=== PATIENT | male | born 1940 | race Caucasian/White ===

== ENCOUNTER 2017-03-10 19:14 | Inpatient (IN) | payer OTHER, MEDICARE ==
--- NOTE | ~2017-03-10 | DS ---
Unit #: [id number] #: [id number] Patient: VIRAL COHN JR [id number] [address] [place], [place] [address] [id number] I MR#: [id number] NAME: VIRAL COHN JR ROOM: 568 Age: 76 Sex: M Admission Date: 03/10/2017 : 1940 Discharge Date: 03/13/2017 Attending Physician: Deo Pacheco M.D. Primary Care Physician: No Primary Care Physician DISCHARGE SUMMARY DISCHARGE DIAGNOSES 1. Acute on chronic systolic congestive heart failure with a left ventricular ejection fraction of 15%. 2. Valvular heart disease with history of severe mitral regurgitation and moderate tricuspid regurgitation. 3. Coronary artery disease with history of myocardial infarction status post percutaneous coronary intervention and drug-eluting stent in the right coronary artery. Mid LAD 70%. Posterior marginal 80%. September 2013. 4. Sick sinus syndrome with history of permanent pacemaker. Needs consideration for upgrade of biventricular AICD. 5. History of atrial fibrillation, now ventricular paced. 6. Hypertension. 7. Hyperlipidemia. 8. Diabetes mellitus, insulin dependent. 9. Recent hypoglycemia, stable. 10. Chronic obstructive pulmonary disease. 11. Obstructive sleep apnea. 12. Acute kidney injury on chronic kidney disease. 13. Mild thrombocytopenia. 14. Peripheral arterial disease with history of abdominal aortic aneurysm repair. DISCHARGE MEDICATIONS 1. Metoprolol succinate 25 mg p.o. b.i.d. 2. Furosemide 40 mg p.o. b.i.d. 3. Crestor 20 mg p.o. daily. 4. Lisinopril 10 mg p.o. q.h.s. 5. Hytrin 10 mg p.o. daily. 6. NovoLog mix 70/30 30 units subcu b.i.d. before meals. 7. Aspirin 81 mg p.o. daily. 8. Plavix 75 mg p.o. daily. 9. Spironolactone 25 mg p.o. daily. 10. Protonix 40 mg p.o. daily. 11. Potassium chloride 20 mEq p.o. b.i.d. 12. Nitroglycerin 0.4 mg sublingual q.5 minutes x3 p.r.n. for chest pain. HOSPITAL COURSE This is a 76-year-old white male known to our group with a past medical history of chronic systolic congestive heart failure, sick sinus syndrome status post permanent pacemaker, hypertension, hyperlipidemia, diabetes mellitus and coronary artery disease status post PCI and stent in the right coronary artery in 2012. The patient is also known to have peripheral artery disease and underwent previous abdominal aortic aneurysm Unit #: [id number] #: [id number] Patient: VIRAL COHN JR repair. He presented to the office on 03/10/2017 with complaints of shortness of breath with PND and orthopnea. He also had a dry hacking cough. There were no complaints of chest pain, palpitations, dizziness or syncope. He did have some swelling in his right ankle over the last couple of weeks. EKG revealed ventricular paced rhythm. Initial exam revealed diminished breath sounds in both lungs with fine rales and rhonchi. EKG was obtained and revealed a decreased ejection fraction of 10 to 15%. There was severe mitral regurgitation caused by an eccentric jet, moderate tricuspid regurgitation and a right ventricular systolic pressure of 47 mmHg with trace aortic regurgitation. Previous ejection fraction was documented at 35% per cardiac catheterization 2012. He was admitted to the hospital and started on IV Lasix and a short course of IV dobutamine. He was started on afterload reducing agents. With severe left ventricular systolic dysfunction, he was not felt to be a good candidate for surgical repair of the mitral or tricuspid valve at this stage. Dr. Garcia was consulted for medical management. During hospitalization, the patient did have some hypoglycemia and his 70/30 mix was decreased and his glucose levels stabilized. Dobutamine drip was discontinued and he was restarted on an oral beta bettye. He was briefly started on Entresto once his volume status improved but his creatinine ultimately increased from 1.4 to 2.2. He denies any shortness of breath or lower extremity edema. His volume status has stabilized. However, due to his elevated creatinine, Entresto has been stopped. He was then placed back on his HOMER inhibitor per home dosing. He has been started on a low dose of Spironolactone and his Lasix has been adjusted. He has been recommended to follow up in the office with Dr. Garcia in one week for a glucose check and appointment. He has also been instructed to follow up on 03/16/2017 for a BMP to evaluate renal function. The patient has an EF of only 15%, which is thought to be from valvular disease. Again, he is not a candidate for current valve replacement. He should be considered for biventricular AICD which can be arranged as an outpatient. CHF education has been completed and the patient has been encouraged to follow fluid restriction and low sodium. SPEECH [facility] DIRECTOR Dr. Garcia. DIAGNOSTIC STUDIES LABORATORY: White cell count 6.4, hemoglobin 12.9, hematocrit 38.6, platelets 106. Sodium 140, potassium 3.9, chloride 99, CO2 31, BUN 32, creatinine 2.2, glucose 173, magnesium 2.2. BNP 1,216, 678 and 338. Hemoglobin A1C is 7. TSH 5.36. IMAGING: Chest x-ray on 03/10/2017 reveals background parenchymal changes suggesting mild emphysema. Trace amount of pleural fluid or pleural thickening but no sizeable effusions or focal airspace disease. CARDIOVASCULAR: EKG and telemetry reveal a V-paced rhythm. PHYSICAL EXAMINATION GENERAL APPEARANCE: This is a 76-year-old white male in no acute distress. VITAL SIGNS: Temperature 96.1. Pulse 72. Blood pressure 96/55 with previous blood pressure 118/62. SKIN: Warm and dry. NECK: Supple. No jugular vein distension. No hepatojugular reflux. Normal carotid upstrokes. No carotid bruits auscultated. HEART: S1, S2. Regular rate and rhythm. No murmurs, rubs or gallops. Unit #: [id number] #: [id number] Patient: VIRAL COHN JR LUNGS: Bilateral breath sounds have good air entry throughout all lung smith. Respirations even and unlabored. No rales, rhonchi or wheezes. ABDOMEN: Soft, nontender, nondistended. Positive bowel sounds auscultated x4 quadrants. No ascites noted. EXTREMITIES: Bilateral extremities have pretibial pitting edema. DP and PT pulses 2+. Capillary refill less than three seconds. DISCHARGE INSTRUCTIONS 1. The patient will be discharged home today. 2. Follow up with Dr. Garcia in one week. 3. Follow up with Dr. Pacheco in six weeks. Office will call to arrange appointment. 4. CHF education. 5. Diet: No concentrated sweets, 2 g sodium with 1800 mL daily fluid restriction. 6. BMP on 03/16/2017 due to renal dysfunction. 7. Consider pacemaker upgrade to biventricular AICD. 8. Prescriptions provided for nitroglycerin, potassium chloride, metoprolol succinate, Lasix and spironolactone. 9. The patient had documented atrial fibrillation in a dictation in 2012. Telemetry currently reveals a regular rhythm with ventricular paced beats. Need to discuss long-term anticoagulation as an outpatient due to the fact that the patient has valvular heart disease and a low ejection fraction, he will be prone for recurrent atrial arrhythmias. Dictated by... Odalys Sabillon APRN for Hernandez Pineda/jorje TD: 03/15/2017 07:40 JOB #: [id number] DISCHARGE SUMMARY Page 1 of 1 X X DISCHARGE SUMMARY
--- NOTE | ~2017-03-10 | CO ---
Unit #: [id number] #: [id number] Patient: VIRAL COHN JR [id number] [address] [place], [place] [address] [id number] I MR#: [id number] NAME: VIRAL COHN JR ROOM: 568 Age: 76 Sex: M Admission Date: 03/10/2017 : 1940 Attending Physician: Deo Pacheco M.D. CONSULTATION REPORT CONSULTING AND ADMITTING PHYSICIAN Deo Pacheco M.D. REASON FOR HOSPITALIZATION The patient is a 76-year-old white male with a history of obesity, coronary artery disease, type 2 diabetes mellitus, hypertension, CHF, ejection fraction of 15%, severe mitral regurgitation, COPD, permanent pacemaker, chronic kidney disease stage 3, obstructive sleep apnea syndrome for which he is noncompliant with CPAP, peripheral arterial disease, status post abdominal aortic aneurysm repair, thrombocytopenia, apparently saw Dr. Pacheco in the office for worsening shortness of air. He has had no chest pain. He had some increased peripheral edema. He has fairly chronic PND and orthopnea, but again he has sleep apnea and does wear a CPAP mask. He was directly admitted from the office for IV diuresis and dobutamine therapy. ALLERGIES He has stated allergies to Levaquin and Talwin. MEDICATIONS Prior to admission; metoprolol 50 mg p.o. b.i.d.; Prinivil 10 mg p.o. q.h.s.; Lasix 80 mg p.o. b.i.d.; Hytrin 10 mg q.h.s.; Plavix 75 mg daily; metolazone 2.5 mg daily; Crestor 20 mg daily; K-Dur 20 mEq t.i.d.; Protonix 40 mg daily; NovoLog 70/30, 55 units a.m. and 45 units p.m. PAST MEDICAL HISTORY Acute myocardial infarction in 09/2013; at which time, he underwent PTCA and stent of the right coronary artery. He has a permanent pacemaker for high-degree AV block; history of thrombocytopenia; type 2 diabetes mellitus; chronic kidney disease, stage 3; peripheral arterial disease, status post abdominal aortic aneurysm repair; he has had a prior cholecystectomy; history of hypertension; hyperlipidemia; obstructive sleep apnea syndrome; COPD. PAST SURGICAL HISTORY Cholecystectomy, permanent pacemaker, abdominal aortic aneurysm repair, cardiac stent. SOCIAL HISTORY Prior smoker, nondrinker. No street drug use. , retired. PHYSICAL EXAMINATION GENERAL: He is awake, alert, oriented x3, in no acute distress. VITAL SIGNS: O2 saturations 97% on room air, he is afebrile, pulse 75, Unit #: [id number] #: [id number] Patient: VIRAL COHN JR respirations 18, blood pressure 146/63. HEENT: Unremarkable. NECK: Supple without JVD, bruits, adenopathy or thyromegaly. CHEST: Diffusely decreased breath sounds, but no audible rales or wheezes. HEART: Has a regular rate and rhythm without any murmurs, rubs, or gallops. ABDOMEN: Soft, nondistended, nontender with positive bowel sounds. No hepatosplenomegaly. EXTREMITIES: Show no clubbing, cyanosis, or edema. /RECTAL: Deferred. NEUROLOGIC: Grossly intact. DIAGNOSTIC STUDIES LABORATORY RESULTS: CBC is normal except for a hemoglobin of 12.9 with normal indices, platelets are 104,000. BNP is 1216. CMP is normal except for a GFR of 48.1 and a potassium of 2.8. Free T4 and TSH are within normal limits. Magnesium is 1.5. Blood sugar checked last p.m. was 87. IMAGING STUDIES: Chest x-ray done, no report. No EKG in the chart. His rhythm strip showed a paced rhythm. IMPRESSION 1. Acute on chronic congestive heart failure. 2. Severe systolic congestive heart failure with an ejection fraction of 15%. 3. Severe mitral regurgitation. 4. Hypokalemia. 5. Hypomagnesemia. 6. Thrombocytopenia. 7. Anemia. 8. Obstructive sleep apnea syndrome. 9. Chronic obstructive pulmonary disease. 10. Type 2 diabetes mellitus. 11. Hyperlipidemia. 12. Hypertension. 13. Coronary artery disease. 14. Peripheral arterial disease. 15. Permanent pacemaker. 16. Chronic kidney disease, stage 3. 17. Status post cholecystectomy. 18. Status post abdominal aortic aneurysm repair. PLAN As above, the patient has been placed on IV Lasix. His potassium and magnesium will be replaced per protocol. He was on IV Dobutrex and a monitored bed. SCDs are in place for DVT prophylaxis. He is on a fluid restriction with strict I's and O's. We will follow up on his renal function, blood sugars, and electrolytes. Thank you for the consultation. Dictated by... Ivan Garcia M.D. DOUG/ernie Unit #: [id number] #: [id number] Patient: VIRAL COHN JR TD: 03/12/2017 07:28 JOB #: [id number] CONSULTATION REPORT Page 1 of 1 X Ivan Garcia MD X CONSULTATION REPORT
--- NOTE | ~2017-03-10 | HP ---
Unit #: [id number] #: [id number] Patient: VIRAL RODGERS JR [id number] [address] [place], [place] [address] [id number] I MR#: [id number] NAME: VIRAL RODGERS ROOM: 568 Age: 76 Sex: M Admission Date: 03/10/2017 : 1940 Attending Physician: Deo Pacheco M.D. Primary Care Physician: No Primary Care Physician HISTORY AND PHYSICAL REASON FOR ADMISSION Congestive heart failure. HISTORY OF PRESENT ILLNESS Mr. Rodgers is a 76-year-old white male known to have coronary artery disease and left ventricular systolic failure, with a history of sick sinus node syndrome and permanent pacemaker implantation in the past. He came to the office for a routine physical examination, but complained of shortness of breath the night before admission to an extent that he had a sitter by the side of the bed to be able to catch his breath. He had been awakened from sleep about 2 in the morning and dozed off to sleep sitting up because every time he tried to lie back in bed he would smother. This was accompanied by dry hacking cough, but he denied any chest discomfort to suggest angina pectoris, palpitations, dizziness or lightheadedness. He had noticed swelling over his ankle over the last few weeks, but did not make the connection between shortness of breath and leg edema. The patient has been able to do most of his day-to-day activities around the house without any chest pain or shortness of breath, but walking up a flight of stairs or walking in a grocery store had made him extremely dyspneic and weak. He denies any syncope, near syncope, palpitations. There is no history of hemoptysis, diplopia, blurred vision, lightheadedness. PAST MEDICAL HISTORY 1. Positive for type 2 diabetes mellitus. 2. Chronic renal insufficiency. 3. Peripheral arterial disease. 4. Status post abdominal aortic aneurysm repair. 5. Hypertension. 6. Hyperlipidemia. 7. Permanent pacemaker implantation. 8. Thrombocytopenia. PAST CORONARY HISTORY 1. History of myocardial infarction in 09/2013, for which he underwent angioplasty with stent insertion on the right coronary artery. 2. Cardiac catheterization in 2012 also reviewed. Following left ventricular systolic dysfunction with ejection fraction of 35%. There was 70% mid LAD stenosis, 99% stenosis in the mid right coronary artery. A previously placed stent had shown a 50% intrastent stenosis and there was 80% stenosis in the second marginal branch of the circumflex. 3. An echocardiogram done in 2013 showed an ejection fraction of 35%, Unit #: [id number] #: [id number] Patient: VIRAL RODGERS JR moderate to severe mitral regurgitation, grade 2 diastolic dysfunction and severe global hypokinesis of the left ventricle with trace of aortic regurgitation and normal right ventricular systolic pressures. This was done at [facility]. SOCIAL HISTORY The patient is a nonsmoker and does not abuse alcohol. FAMILY HISTORY Positive for coronary artery disease. REVIEW OF SYSTEMS The patient denies any history of fever, chills, rigors, hematuria, weight loss, abdominal pain, constipation or diarrhea. PHYSICAL EXAMINATION GENERAL: Middle-aged male in no acute cardiorespiratory distress. VITALS: At the time of examination he had a heart rate of 68 beats per minute and regular. Blood pressure 120/60. HEENT: Jugular veins are distended to 4 cm at 30 degree head elevation, carotid upstrokes are normal without any bruits. There was 2+ leg edema up to the mid calf. CHEST: Diminished breath sounds in both lung smith, there are fine rales and rhonchi in both lung smith at the bases. HEART: Apical impulse is displaced outside the midclavicular line, first heart sound is normal, second heart sound is widely split. There is a grade 1-2/6 systolic murmur at the apex, no diastolic murmur could be appreciated. There was an S3 gallop. There was no pericardial frication rub. ABDOMEN: Mild obesity. There is no tenderness or mass. Scar of previous surgery is noted. Liver edge is not palpable. There is no ascites. RECTAL: Not done. NEUROLOGIC: MEDICAL CSR examination shows cranial nerves are normal. There is no motor or sensory deficit. DIAGNOSTIC STUDIES CARDIOVASCULAR: Electrocardiogram shows ventricular VVI pacemaker functioning normally. Echocardiogram shows severely reduced ejection fraction of 10%-15%. There is severe mitral regurgitation caused by an eccentric jet, moderate tricuspid regurgitation is noted with right ventricular systolic pressure of 47 mmHg and a trace of aortic regurgitation. ASSESSMENT 1. Acute on chronic systolic heart failure. 2. Permanent pacemaker functioning normally. 3. Severe mitral regurgitation. 4. Moderate tricuspid regurgitation. 5. Mild pulmonary artery hypertension. 6. Three vessel coronary artery disease, old inferior wall myocardial infarction. 7. Status post PCI with stent insertion right coronary artery 2013. 8. Type 2 diabetes mellitus. 9. Hypertensive heart disease. 10. Status post abdominal aortic aneurysm repair. PLAN Unit #: [id number] #: [id number] Patient: VIRAL RODGERS JR The patient will be admitted to the hospital, intravenous Lasix is being started with a short course of intravenous dobutamine. Afterload reducing agents will be started and if renal function is still normal, the dose of HOMER inhibitors would be increased. Prognosis remains guarded. I will discuss the problem with the patient and his family about possible evaluation for progression of coronary artery disease. With severe left ventricular systolic dysfunction, I do not think he is a candidate for surgical repair of the mitral valve or tricuspid valve at this stage. I will discuss the case with Dr. Ivan Garcia, his primary physician. Dictated by Hernandez Pineda/nirav TD: 03/11/2017 07:50 JOB #: [id number] HISTORY AND PHYSICAL Page 1 of 1 X Deo Pacheco MD X HISTORY AND PHYSICAL
--- NOTE | ~2017-03-10 | CR63 ---
[facility] A Service of [facility] RADIOLOGY TEXT RESULTS PATIENT: VIRAL COHN JR LOCATION: [facility] : 39 UNIT #: [id number] AGE: [address]: Deo Pacheco MD SEX: M ORDER DR: [id number] [facility] [address]. [place], [place] [address] [id number] I MR#: [id number] Acc #: [id number] NAME: VIRAL COHN : 1940 SEX: M STUDY DATE/TIME: 03/10/2017 23:02 UNIT: [facility] ROOM: [facility] STUDY DESCRIPTION: CR Chest 2 View Attending Physician: Deo Pacheco M.D. Ordering Physician: Deo Pacheco M.D. MEDICAL IMAGING REPORT This report is preliminary unless electronic signature is present EXAM 2-view chest HISTORY Cough, CHF onset today. COMPARISON 04/23/2016 FINDINGS 2 views of the chest demonstrates hyperinflation patchy hyperlucency suggesting mild emphysema. Slight blunting of both CP angles may represent a trace amount of pleural fluid or pleural thickening. No sizeable effusions. Stable cardiomegaly and diffuse aortic atherosclerotic changes. Dual lead pacemaker noted over the left chest with leads in expected position. Diffuse degenerative changes thoracic spine. IMPRESSION No definite acute abnormality. Background parenchymal changes suggest mild emphysema and there may be a trace amount of pleural fluid or pleural thickening but no sizeable effusions or focal airspace disease. Dictated by... Anthony Garcia M.D. THIS IS AN ELECTRONICALLY VERIFIED REPORT Anthony Garcia M.D. at 03/14/2017 7:23 AM ED/mark TD: 03/11/2017 03:13 JOB #: [id number] [facility] A Service of [facility] RADIOLOGY TEXT RESULTS PATIENT: VIRAL COHN JR LOCATION: [facility] : 39 UNIT #: [id number] AGE: [address]: Deo Pacheco MD SEX: M ORDER DR: MEDICAL IMAGING REPORT Page 1 of 1 COPY
[~2017-03-10 19:14] MED LIST: ASPIRIN PO; ASPIRIN81 MG PO; CECLOR PULVULE250 MG PO; CEFUROXIME250 MG PO; CLOPIDOGREL BIS75 MG PO; CLOPIDOGREL75 MG PO; COMBIVENT U/D3 M2 INH; COMBIVENT U/D3 ML INH; CRESTOR PO; EFFER-K 20 MEQ20 MEQ PO; FUROSEMIDE80 MG PO; GLUCOPHAGE XR500 MG PO; GLUCOTROL PO; GLUCOTROL10 MG PO; HCTZ PO; HYDRALAZINE HCL25 MG PO; HYTRIN PO; HYTRIN10 M1 PO; INSULIN; K-DUR20 ME1 PO; KCL PO; LASIX PO; LASIX80 MG PO; LIPITOR20 MG PO; LISINOPRIL PO; LOPRESSOR PO; METOLAZONE2.5 MG PO; METOPROLOL PO; METOPROLOL SUCC50 MG PO; METOPROLOL TART25 MG PO; NORVASC PO; NOVOLOG MI100 UNIT/1; NOVOLOG100 U/ML SUBQ; NOVOLOG7030 SUBQ; PANTOPRAZOLE SO40 MG PO; PLAVIX PO; PRINIVIL10 MG PO; PROTONIX PO; SYMBICORT INH; TERAZOSIN HCL10 MG PO; ZESTRIL40 MG PO; ZITHROMAX1 G/PKT PO
[2017-03-11 00:01] LABS: BASOPHIL% 0.6 % (0-2.5); EOSINOPHIL# 0.3 X10e3 (0-0.7); EOSINOPHIL% 3.9 % (0.0-7.0); HEMATOCRIT 38.4 % (38.0-50.0); HEMOGLOBIN 12.9 gm/dL (13.0-16.0); LYMPHOCYTE% 25.9 % (17.0-45.0); MEAN CELL VOLUME 87.8 FL (83-96); MEAN CORPUSCULAR HEMOGLOBIN 29.6 PG (28-34); MEAN CORPUSCULAR HGB CONC 33.7 g/dL (30-36); MEAN PLATELET VOLUME 8.9 FL (6.5-11.5); MONOCYTE# 0.7 X10e3 (0-1.0); MONOCYTE% 9.5 % (3.0-12.0); NEUTROPHIL# 4.5 X10e3 (1.5-7.1); NEUTROPHIL% 60.1 % (40-75); PLATELET COUNT 104 X10e3 (140-420); RED BLOOD COUNT 4.38 X10e (3.90-5.60); RED CELL DISTRIBUTION WIDTH 17.6 % (11.0-15.5); WHITE BLOOD COUNT 7.5 X10e3 (4.0-10.5)
[2017-03-11 00:03] LABS: DIFF IND NO
[2017-03-11 00:30] LABS: ALBUMIN SERUM 4.1 g/dL (3.5-5.0); BILIRUBIN,TOTAL 1.4 mg/dL (0.2-2.0); BUN/CREATININE RATIO 16.42; CALCIUM SERUM 8.9 mg/dL (8.4-10.2); CREATININE SERUM 1.4 mg/dL (0.6-1.4); GLOM FILT RATE Estimated 48.1 mL/min (>60); PROTEIN TOTAL SERUM 6.7 g/dL (6.0-8.3)
[2017-03-11 00:32] LABS: POTASSIUM 2.8 mmol/L (3.5-5.1)
[2017-03-11 01:03] LABS: THYROID STIMULATING HORMONE 5.36 uIU/ml (0.34-5.60)
[2017-03-11 01:10] LABS: FREE THYROXIN (T4) 0.85 ng/dL (0.58-1.64)
[2017-03-12 07:09] LABS: HEMATOCRIT 38.6 % (38.0-50.0); HEMOGLOBIN 12.9 gm/dL (13.0-16.0); MEAN CELL VOLUME 87.6 FL (83-96); MEAN CORPUSCULAR HEMOGLOBIN 29.3 PG (28-34); MEAN CORPUSCULAR HGB CONC 33.5 g/dL (30-36); MEAN PLATELET VOLUME 9.4 FL (6.5-11.5); RED BLOOD COUNT 4.41 X10e (3.90-5.60); RED CELL DISTRIBUTION WIDTH 17.6 % (11.0-15.5); WHITE BLOOD COUNT 6.4 X10e3 (4.0-10.5)
[2017-03-12 07:38] LABS: BUN/CREATININE RATIO 16.66; CREATININE SERUM 1.5 mg/dL (0.6-1.4); GLOM FILT RATE Estimated 44.3 mL/min (>60); MAGNESIUM 1.7 mg/dL (1.6-3.0)
[2017-03-12 07:45] LABS: POTASSIUM 2.6 mmol/L (3.5-5.1)
[2017-03-13 06:40] LABS: BUN/CREATININE RATIO 14.54; CALCIUM SERUM 8.8 mg/dL (8.4-10.2); CREATININE SERUM 2.2 mg/dL (0.6-1.4); GLOM FILT RATE Estimated 27.9 mL/min (>60); MAGNESIUM 2.2 mg/dL (1.6-3.0); POTASSIUM 3.9 mmol/L (3.5-5.1)
[2017-03-13] MEDS ORDERED: NITROGLYGERIN0.4 MG SL (12:59)
[2017-03-13] MEDS ORDERED: LASIX PO (13:06)
[2017-03-13] MEDS ORDERED: ALDACTONE25 MG PO (13:07)
[2017-03-13] MEDS ORDERED: ASPIRIN81 MG PO (13:15)
== END 2017-03-13 13:43 | disposition home or self-care (01) | DRG 291 ==
LOC: CEDOF 19:14 → C5C 19:55
PROVIDERS: Internal Medicine; Internal Medicine Cardiovascular Disease
DX: I13.0 Hypertensive heart and chronic kidney disease with heart failure and stage 1 through stage 4 chronic kidney disease, or unspecified chronic kidney disease (principal); I50.23 Acute on chronic systolic (congestive) heart failure; N17.9 Acute kidney failure, unspecified; I27.2 Other secondary pulmonary hypertension; E11.22 Type 2 diabetes mellitus with diabetic chronic kidney disease; D69.6 Thrombocytopenia, unspecified; N18.3 Chronic kidney disease, stage 3 (moderate); E83.42 Hypomagnesemia; Z95.9 Presence of cardiac and vascular implant and graft, unspecified; I08.1 Rheumatic disorders of both mitral and tricuspid valves; I25.2 Old myocardial infarction; Z95.5 Presence of coronary angioplasty implant and graft; G47.33 Obstructive sleep apnea (adult) (pediatric); Z91.19 Patient's noncompliance with other medical treatment and regimen; E66.9 Obesity, unspecified; Z90.49 Acquired absence of other specified parts of digestive tract; E87.6 Hypokalemia; I73.9 Peripheral vascular disease, unspecified; D64.9 Anemia, unspecified; Z79.4 Long term (current) use of insulin; I25.119 Atherosclerotic heart disease of native coronary artery with unspecified angina pectoris
CPT/HCPCS: 71020; 80048; 80053; 82947; 83036; 83735; 83880; 84132; 84439; 84443; 85025; 85027; J1250; J1815; J1940; J3475

== ENCOUNTER 2017-07-20 20:00 | Emergency (ER) | payer OTHER ==
[~2017-07-20] VITALS: Ht 177.8 cm; Wt 99.4 kg
--- NOTE | ~2017-07-20 | CR282 ---
[facility] A Service of [facility] RADIOLOGY TEXT RESULTS PATIENT: VIRAL COHN JR LOCATION: [facility] : 39 UNIT #: [id number] AGE: [address]: Randy León MD SEX: M ORDER DR: [id number] [address] [address] [id number] E MR#: [id number] Acc #: [id number] NAME: VIRAL COHN JR : 1940 SEX: M STUDY DATE/TIME: 07/20/2017 22:23 UNIT: [facility] ROOM: STUDY DESCRIPTION: CR Wrist Min 3 View Rt Attending Physician: Randy León M.D. Ordering Physician: Randy León M.D. Primary Care Physician: Primary Care Physician No MEDICAL IMAGING REPORT This report is preliminary unless electronic signature is present EXAM Right wrist, 07/20/2017 HISTORY 76-year-old male in the ED complaining of right hand and wrist pain and swelling after a fall today. TECHNIQUE Three-view right wrist series. FINDINGS No fracture, dislocation or other acute osseous abnormality is demonstrated. Soft tissue swelling is visible over the dorsal aspect of the hand and wrist. Moderately severe degenerative arthropathy at the first CMC joint. IMPRESSION 1. No visible acute osseous abnormality. 2. Soft tissue swelling visible over the dorsal aspect of the hand and wrist. 3. 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 Dictated by... Tapan Almaguer M.D. THIS IS AN ELECTRONICALLY VERIFIED REPORT Tapan Almaguer M.D. at 07/21/2017 5:59 AM ANA/trenton TD: 07/21/2017 00:02 [facility] A Service [facility] RADIOLOGY TEXT RESULTS PATIENT: VIRAL COHN JR LOCATION: [facility] : 39 UNIT #: [id number] AGE: [address]: Randy León MD SEX: M ORDER : BLAINE #: [id number] MEDICAL IMAGING REPORT Page 1 of 1 COPY
--- NOTE | ~2017-07-20 | CR142 ---
[facility] A Service of [facility] RADIOLOGY TEXT RESULTS PATIENT: VIRAL COHN JR LOCATION: [facility] : 39 UNIT #: [id number] AGE: [address]: Randy León MD SEX: M ORDER DR: [id number] [id number] [facility]. [place], [place] [address] [id number] E MR#: [id number] Acc #: [id number] NAME: VIRAL COHN JR : 1940 SEX: M STUDY DATE/TIME: 07/20/2017 22:22 UNIT: [facility] ROOM: STUDY DESCRIPTION: CR Hand Min 3 Views Rt Attending Physician: Randy León M.D. Ordering Physician: Randy León M.D. Primary Care Physician: No Primary Care Physician MEDICAL IMAGING REPORT This report is preliminary unless electronic signature is present EXAM Right hand, 07/20/2017. HISTORY 76-year-old male in the ED complaining of right hand and wrist pain after a fall today. TECHNIQUE Three-view right hand series. FINDINGS Soft tissue swelling is visible over the dorsal aspect of the hand and wrist. No fracture, dislocation or other acute osseous abnormality is identified. Degenerative arthropathy, greatest at the first CMC joint and first IP joint. IMPRESSION 1. No acute osseous abnormality is identified. 2. Soft tissue swelling visible over the dorsal aspect of the hand and wrist. 3. Osteoarthritis with greatest involvement of the first CMC joint and first IP joint. Dictated by... Tapan Almaguer M.D. THIS IS AN ELECTRONICALLY VERIFIED REPORT Tapan Almaguer M.D. at 07/21/2017 5:59 AM ANA/johanne TD: 07/20/2017 23:58 JOB #: [id number] [facility] A Service of [facility] RADIOLOGY TEXT RESULTS PATIENT: VIRAL COHN JR LOCATION: [facility] : 39 UNIT #: [id number] AGE: [address]: Randy León MD SEX: M ORDER DR: MEDICAL IMAGING REPORT Page 1 of 1 COPY
[~2017-07-20 20:00] MED LIST changes: +ALDACTONE25 MG PO; +NITROGLYGERIN0.4 MG SL
== END 2017-07-20 23:58 | disposition home or self-care (01) ==
LOC: CED 20:00
DX: S63.501A Unspecified sprain of right wrist, initial encounter (principal); E11.9 Type 2 diabetes mellitus without complications; E78.5 Hyperlipidemia, unspecified; I13.0 Hypertensive heart and chronic kidney disease with heart failure and stage 1 through stage 4 chronic kidney disease, or unspecified chronic kidney disease; N18.9 Chronic kidney disease, unspecified; M10.9 Gout, unspecified; X58.XXXA Exposure to other specified factors, initial encounter
CPT/HCPCS: 73110; 73130; 99283